=== PATIENT | female | born 2000 | race American Indian/Alaskan Native ===

== ENCOUNTER 2018-10-28 22:31 | Emergency (ER) | payer MEDICAID ==
[2018-10-29 00:30] LABS: Basophils # (Auto) 0.1 K/mm3 (0.0-0.1); Basophils % (Auto) 0.7 % (0.0-1.8); Eosinophils # (Auto) 0.1 K/mm3 (0.0-0.4); Eosinophils % (Auto) 0.9 % (0.0-4.3); Hematocrit 38.3 % (30.3-42.9); Hemoglobin 12.9 gm/dl (10.1-14.3); Lymphocytes # (Auto) 2.3 K/mm3 (1.2-5.4); Lymphocytes % (Auto) 24.5 % (13.4-35.0); Mean Corpuscular HGB Conc 34 % (30-34); Mean Corpuscular Volume 81 fl (79-97); Monocytes # (Auto) 0.6 K/mm3 (0.0-0.8); Monocytes % (Auto) 6.6 % (0.0-7.3); Platelet Count 249 K/mm3 (140-440); Red Blood Count 4.75 M/mm3 (3.65-5.03); Red Cell Distribution Width 14.6 % (13.2-15.2)
[2018-10-29 00:49] LABS: BUN/Creatinine Ratio 16; Blood Urea Nitrogen 8 mg/dL (7-17); Calcium 9.8 mg/dL (8.4-10.2); Hemolysis Index 5
[2018-10-29] MEDS ORDERED: NACL 0.9% 1000 ML 1,000 ML IV ONE (02:01)
[2018-10-29] MEDS ORDERED: BENADRYL IV STA (02:01)
[2018-10-29] MEDS ORDERED: REGLAN IV STA (02:01)
[2018-10-29] MEDS ORDERED: VITAMIN B-6 PO STA (02:01)
--- NOTE | 2018-10-29 02:34 | Emergency Department Report ---
ED Female HPI - General Chief complaint: Nausea/Vomiting/Diarrhea Stated complaint: N/V Time Seen by Provider: 10/29/18 01:12 Source: patient Mode of arrival: Ambulatory Limitations: No Limitations - History of Present Illness Initial comments: 17-year-old -[place] female who is much department 7 weeks complaining of nausea, vomiting day. States he vomited 5 times this had symptoms she chills and some mild muscle aches, fatigue as well. No vaginal bleeding, no vaginal discharge, no no dysuria, no hematuria, no polyuria. No pulsatile polydipsia, fevers chills sweats, chest pain, palpitations, no hemoptysis, no hematemesis or hematochezia -: Gradual Consistency: constant Improves with: none Worsens with: none Are you Now?: Yes Associated Symptoms: nausea/vomiting. denies: vaginal bleeding, abdominal pain, loss of appetite, dysuria, hematuria, shortness of breath, syncope, weakness - Related Data Previous Rx's Medication Instructions Recorded Last Taken Type Metoclopramide [Reglan] 10 mg PO TID PRN #20 tab 10/29/18 Unknown Rx Pyridoxine [Vitamin B-6] 50 mg PO DAILY #30 tablet 10/29/18 Unknown Rx Allergies Allergy/AdvReac Type Severity Reaction Status Date / Time No Known Allergies Allergy Verified 10/29/18 02:07 ED Review of Systems ROS: Stated complaint: N/V Other details as noted in HPI Constitutional: denies: chills, fever Eyes: denies: eye pain, eye discharge, vision change ENT: denies: ear pain, throat pain Respiratory: denies: cough, shortness of breath, wheezing Cardiovascular: denies: chest pain, palpitations Endocrine: no symptoms reported Gastrointestinal: denies: abdominal pain, nausea, diarrhea Genitourinary: denies: urgency, dysuria, discharge Musculoskeletal: denies: back pain, joint swelling, arthralgia Skin: denies: rash, lesions Neurological: denies: headache, weakness, paresthesias Psychiatric: denies: anxiety, depression Hematological/Lymphatic: denies: easy bleeding, easy bruising ED Past Medical Hx - Past Medical History Hx Hypertension: Yes Additional medical history: Thyroid Disease - Surgical History Past Surgical History?: Yes Additional Surgical History: - Social History Smoking Status: Former Smoker Substance Use Type: None - Medications Home Medications: Home Medications Medication Instructions Recorded Confirmed Last Taken Type Metoclopramide [Reglan] 10 mg PO TID PRN #20 tab 10/29/18 Unknown Rx Pyridoxine [Vitamin B-6] 50 mg PO DAILY #30 tablet 10/29/18 Unknown Rx ED Physical Exam - General Limitations: No Limitations General appearance: alert, in no apparent distress - Head Head exam: Present: atraumatic, normocephalic - Eye Eye exam: Present: normal appearance, PERRL, EOMI Pupils: Present: normal accommodation - ENT ENT exam: Present: normal exam, mucous membranes moist - Neck Neck exam: Present: normal inspection - Respiratory Respiratory exam: Present: normal lung sounds bilaterally. Absent: respiratory distress - Cardiovascular Cardiovascular Exam: Present: regular rate, normal rhythm. Absent: systolic murmur, diastolic murmur, rubs, gallop - GI/Abdominal GI/Abdominal exam: Present: soft, normal bowel sounds - Extremities Exam Extremities exam: Present: normal inspection - Back Exam Back exam: Present: normal inspection - Neurological Exam Neurological exam: Present: alert, oriented X3 - Psychiatric Psychiatric exam: Present: normal affect, normal mood - Skin Skin exam: Present: warm, dry, intact, normal color. Absent: rash ED Course Vital Signs 10/28/18 23:10 Temperature 98 F Pulse Rate 82 Respiratory 18 Rate Blood Pressure 125/69 O2 Sat by Pulse 99 Oximetry - Reevaluation(s) Reevaluation #1: 10/29/18 03:46 Symptoms 100% resolved feels much better, feels comfortable returning home and follow-up with her primary [facility]IST ED Medical Decision Making - Lab Data Result diagrams: 10/29/18 00:13 10/29/18 00:13 - Medical Decision Making Discussed with Ms. Friedman, nausea, vomiting and . The importance of hydration. Advised her to continue with the complaint confines of the current medications are provided as well. States she saw her primary her INSTRUCTIONAL SPECIALIST about one week ago and feels, she can follow up again this week. Critical care attestation.: If time is entered above; I have spent that time in minutes in the direct care of this critically ill patient, excluding procedure time. ED Disposition Clinical Impression: Hyperemesis Disposition: DC-01 TO HOME OR SELFCARE Is pt being admited?: No Does the pt Need Aspirin: No Condition: Stable Instructions: Hyperemesis Gravidarum (ED) Prescriptions: Metoclopramide [Reglan] 10 mg PO TID PRN #20 tab PRN Reason: Nausea Pyridoxine [Vitamin B-6] 50 mg PO DAILY #30 tablet Referrals: [facility] [Provider Group] - 3-5 Days
[2018-10-29 07:28] VITALS: BP 104/66
== END 2018-10-29 04:20 | disposition home or self-care (01) ==
LOC: ED 22:31
DX: O21.0 Mild hyperemesis gravidarum (principal)
CPT/HCPCS: 36415; 80048; 82962; 84702; 85025; 96361; 96374; 96375; 99283; J1200; J2765; J7030